=== PATIENT | female | born 1950 ===

== ENCOUNTER 2017-07-03 15:30 | Emergency (ER) | payer MEDICARE, BC ==
[2017-07-03 16:54] VITALS: BP 146/83
--- NOTE | 2017-07-03 17:37 | ED ---
Respiratory - History of Current Complaint Chief Complaint: UCGeneralIllness Stated Complaint: FLU LIKE Time Seen by Provider: 07/03/17 17:27 Pain Intensity: 0 - Allergy/Home Medications Allergies/Adverse Reactions: Allergies Allergy/AdvReac Type Severity Reaction Status Date / Time Latex Allergy Rash Verified 07/03/17 16:47 PMH/Surg Hx/FS Hx/Imm Hx - Surgical History Surgery Procedure, Year, and Place: Tonsil Infectious Disease History: No Infectious Disease History: Denies: Traveled Outside the [place] in Last 30 Days - Social History Alcohol Use: Rare Substance Use Type: Reports: None Smoking Status (MU): Former Smoker Review of Systems Positive: Chills, Fatigue Positive: Nasal Discharge Positive: Cough All Other Systems Reviewed And Are Negative: Yes Physical Exam Vital Signs On Initial Exam: Initial Vitals Temp Pulse Resp BP Pulse Ox 97.6 F 86 16 146/83 98 07/03/17 16:47 07/03/17 16:47 07/03/17 16:47 07/03/17 16:47 07/03/17 16:47 Diagnostics - Vital Signs Vital Signs Temp Pulse Resp BP Pulse Ox 07/03/17 16:47 97.6 F 86 16 146/83 98 - Laboratory Lab Statement: Any lab studies that have been ordered have been reviewed, and results considered in the medical decision making process. Disposition - Course Course Of Treatment: 66 yr old with influenza. Rx with Tamiflu. - Diagnoses Provider Diagnoses: Influenza, Hypertension Discharge - Discharge Plan Condition: Good Disposition: HOME Prescriptions: Oseltamivir CAP* [Tamiflu CAP*] 75 mg PO BID #10 cap Patient Education Materials: Influenza (ED), Hypertension (ED) Forms: *Work Release Referrals: Charisse Horn MD [Primary Care Provider] -
== END 2017-07-03 17:48 | disposition home or self-care (01) ==
LOC: UCCORT 15:30
DX: J11.1 Influenza due to unidentified influenza virus with other respiratory manifestations (principal); I10 Essential (primary) hypertension; Z91.040 Latex allergy status; Z87.891 Personal history of nicotine dependence
CPT/HCPCS: 99212; G0463